=== PATIENT | female | born 1965 | race Caucasian/White ===

== ENCOUNTER → 2024-08-24 | Outpatient (CLI) | payer MEDICARE, MEDICAID, SELFPAY ==
--- NOTE | 2024-08-24 15:36 | XR_ITS ---
Examination: PA lateral chest 2 views TECHNIQUE: Upright PA lateral chest 2 views Exam date and time: August 24, 2024 1543 hours INDICATIONS: Chest pain beginning 3 weeks ago FINDINGS: Normal heart size No pneumonia or pulmonary edema Old appearing fractures right seventh and eighth ribs posterior laterally, clinical correlation advised IMPRESSION: No pneumonia or pulmonary edema Old appearing fractures right seventh and eighth ribs posterior laterally, clinical correlation advised
== END | disposition home or self-care (01) ==
LOC: CDIM 15:26
PROVIDERS: PCP Family Medicine; Referring Provider Family Medicine; Visit Provider Family Medicine
DX: R07.9 Chest pain, unspecified (principal); Z87.81 Personal history of (healed) traumatic fracture
CPT/HCPCS: 71046